=== PATIENT | male | born 1940 | race Caucasian/White ===

== ENCOUNTER 2017-06-22 09:49 | Day surgery (SDC) | payer OTHER ==
[~2017-06-22] VITALS: Ht 185.4 cm; Wt 106.4 kg
[~2017-06-22 09:49] MED LIST: ASPI81TA82 PO; ATOR10 PO; GLUCTAB PO; GLYB1TAB50 PO; LISI-363 PO; VERA300C PO; VITATAB25 PO
[2017-06-22 10:07] VITALS: BP 142/66; PULSE 65; RESP 20; TEMP 97.8; O2SAT 100
[2017-06-22] MEDS ORDERED: LISI-515 PO (10:22)
[2017-06-22] MEDS ORDERED: VERA120T3 PO (10:22)
[2017-06-22] MEDS ORDERED: ATOR10TA15 PO (10:22)
[2017-06-22] MEDS ORDERED: METF1000 PO (10:22)
[2017-06-22] MEDS ORDERED: GLIP5TAB8 PO (10:22)
[2017-06-22] MEDS ORDERED: SODIUM CHLOR 0.9% 1000 ML IV SCH ×2 (10:30→11:00)
[2017-06-22] MEDS ORDERED: IMPLANTED VASCULAR ACCESS DEVICE/PORT - SODIUM CHLORIDE FLUSH IV FLUSH SCH (10:45)
[2017-06-22] MEDS ORDERED: SODIUM CHLORIDE 2 ML FLUSH PRN IV FLUSH (10:45)
[2017-06-22] MEDS ORDERED: IMPLANTED VASCULAR ACCESS DEVICE/PORT - SODIUM CHLORIDE FLUSH PRN IV FLUSH (10:45)
[2017-06-22 10:50] LABS: AUTOMATED NEUTROPHIL # 0.4 TH/MM3 (1.8-7.7); BASOPHIL % 0.8 % (0.0-2.0); EOSINOPHIL % 1.6 % (0.0-4.0); HEMATOCRIT 24.4 % (39.0-51.0); HEMOGLOBIN 8.4 GM/DL (13.0-17.0); LYMPH % 54.2 % (9.0-44.0); LYMPHOCYTE # 0.6 TH/MM3 (1.0-4.8); MEAN CELL VOLUME 92.7 FL (80.0-100.0); MEAN CORPUSCULAR HGB CONC 34.6 % (32.0-36.0); MEAN PLATELET VOLUME 8.4 FL (7.0-11.0); MONO % 2.2 % (0.0-8.0); NEUT % 41.2 % (16.0-70.0); PLATELET COUNT 28 TH/MM3 (150-450); RED BLOOD COUNT 2.63 MIL/MM3 (4.50-5.90); RED CELL DISTRIBUTION WIDTH 22.9 % (11.6-17.2)
[2017-06-22 10:59] LABS: INTERNATIONAL NORMALIZED RATIO 1.1 RATIO; PROTHROMBIN TIME - PATIENT 10.7 SEC (9.8-11.6)
[2017-06-22 11:33] LABS: BANDS 3 % (0-6); LYMPHOCYTES 45 % (9-44); MONOCYTES 3 % (0-8); MYELOCYTES 1 % (0-0); POLYS (SEG NEUTROPHILS) 48 % (16-70)
[2017-06-22 11:36] LABS: NEUTROPHIL # MANUAL DIFF 0.5 TH/MM3 (1.8-7.7)
[2017-06-22] MEDS ORDERED: LIDOCAINE HCL 1% 20 ML VIAL ONE (11:51)
[2017-06-22] MEDS ORDERED: MIDAZOLAM HCL 2 MG/2 ML VIAL ONE ×2 (12:24)
--- NOTE | 2017-06-22 12:56 | PD.RAD ---
Post CT Procedure Prog Note Pre Procedure Diagnosis: (1) Myeloproliferative disorder Post Procedure Diagnosis: (1) Myeloproliferative disorder Procedure Date: Jun 22, 2017 Supervising Radiologist: Bautista Leong JR Anesthesia: Conscious Sedation Plan of Activity Patient to Unit: ROPU Patient Condition: Good See PACS Report for procedural detail/treatment Biopsy Imaging Guidance: CT Side: Left Biopsy Procedure: Bone Marrow Specimen: Core Biopsy, Fine Needle Aspirate Findings: Good core sample and aspiration of BM from left iliac bone. Jr. Salo,Bautista Guerrero MD Jun 22, 2017 12:56
[2017-06-22 13:00] VITALS: BP 126/61; PULSE 59; RESP 18; TEMP 97.7; O2SAT 99
[2017-06-22 13:15] VITALS: BP 129/61; PULSE 65; RESP 20; O2SAT 98
[2017-06-22 13:45] VITALS: BP 128/59; PULSE 63; RESP 20; O2SAT 95
[2017-06-22 14:15] VITALS: BP 125/60; PULSE 60; RESP 20; O2SAT 97
--- NOTE | 2017-06-22 14:16 | RADRPT ---
EXAM DATE/TIME: 06/22/2017 12:36 [facility] COMPARISON: CT NEEDLE BIOPSY BONE MARROW, September 28, 2015, 9:45. INDICATIONS : Leukemia. SEDATION TIME: 30 minutes BIOPSY SITE: Left iliac MEDICATION(S): 1.) 2.5 mg midazolam (Versed) IV 2.) 150 mcg fentanyl (Sublimaze) IV DEVICE(S): 1.) 11 gauge Bone marrow biopsy needle MEDICAL HISTORY : Leukemia. SURGICAL HISTORY : None. ENCOUNTER: Initial ACUITY: 1 day PAIN SCORE: 0/10 LOCATION: Left pelvis A total of one core specimen(s) were obtained and sent to the laboratory for pathologic evaluation. PROCEDURE: 1. CT guided bone marrow biopsy. 2. Conscious sedation with continuous EKG and oximetry monitoring. Prior to the procedure informed consent was obtained. Any appropriate prior imaging studies were rev iewed. Using automated exposure control and adjustment of the mA and/or kV according to patient size , radiation dose was kept as low as reasonably achievable to obtain optimal diagnostic quality images . DICOM format image data is available electronically for review and comparison. The site was prepped in a sterile fashion. Full sterile technique was used, including cap, mask, glendy rile gloves and gown and a large sterile sheet. Hand hygiene and 2% chlorhexidine and/or betadine/al cohol prep was utilized per protocol for cutaneous antisepsis. The skin and subcutaneous tissues wer e infiltrated with local anesthetic solution. With CT guidance the previously identified target was localized. Biopsy was performed using the presc ribed needle as above. Following biopsy marrow aspiration was performed with repeat puncture. Adequa te hemostasis was obtained with compression at the puncture site. Conscious sedation was performed with the prescribed dosages and duration as above in the presence of an independent trained radiology nurse to assist in the monitoring of the patient. EKG and oximetry remained stable throughout the procedure. The patient tolerated the procedure well and there were no complications. The patient was sent to Radiology Outpatient Unit in stable condition. CONCLUSION: 1. Uncomplicated CT guided bone marrow aspirate. 2. Uncomplicated CT guided bone marrow biopsy. Bautista Leong Jr., MD on June 22, 2017 at 14:14 Board Certified Radiologist. This report was verified electronically.
[2017-06-22 14:45] VITALS: BP 122/58; PULSE 66; RESP 20; O2SAT 98
[2017-06-22] MEDS ORDERED: SODIUM CHLORIDE 2 ML FLUSH BID IV FLUSH SCH (21:00)
== END 2017-06-22 15:15 | disposition home or self-care (01) ==
LOC: HRAD 09:49 → HRIP 09:52 → HRAD 15:15
PROVIDERS: ATTEND Internal Medicine Hematology & Oncology
DX: D46.9 Myelodysplastic syndrome, unspecified (principal); D61.818 Other pancytopenia; E11.9 Type 2 diabetes mellitus without complications; E78.5 Hyperlipidemia, unspecified; I10 Essential (primary) hypertension
CPT/HCPCS: 38222; 77012; 85007; 85027; 85097; 85610; 85730; 88184; 88185; 88237; 88264; 88280; 88305; 88311; 88313; 99152; C1830; J2250; J3010